=== PATIENT | female | born 1985 | race Caucasian/White ===

== ENCOUNTER → 2020-06-03 18:20 | Observation (INO) | END | disposition home or self-care (01) | LOC: 1NENULAB | PROVIDERS: ADMIT Student in an Organized Health Care Education/Training Program; ATTEND Student in an Organized Health Care Education/Training Program ==

== ENCOUNTER 2020-07-07 07:27 | Inpatient (IN) ==
[~2020-07-07 07:27] MED LIST: *HR* Nalbuphine 10 MG/ML AMPUL IV PRN; Azithromycin 500 MG in 0.9 % Sodium Chloride 250 ML IVPB ONE; Famotidine 20 MG/2 ML VIAL IVP PRN; Lidocaine 1% 20 ML MDV INFILT PRN; Metoclopramide 10 MG/2 ML VIAL IVP PRN; Naloxone 0.4 MG/ML INJ IVP PRN; Ondansetron 4 MG/2 ML VIAL IVP PRN; Ringers Solution, Lactated 1,000 ML IVC SCH; Ringers Solution, Lactated 1,000 ML ONE
[2020-07-07 07:45] LABS: Basophils % 0.2 %; Eosinophils # 0.1 K/mcL (0.0-0.6); Eosinophils % 0.3 %; Hematocrit 41.2 % (35.3-44.9); Immature Granulocytes % 0.9 % (0-4); Lymphocytes # 1.1 K/mcL (0.6-4.6); Mean Corpuscular Hemoglobin 30.4 pg (28.0-33.3); Mean Corpuscular Volume 89.4 fL (83.0-100.0); Mean Platelet Volume 11.2 fL (9.4-12.4); Monocytes # 1.2 K/mcL (0.0-1.3); Monocytes % 5.5 %; Platelet Count 236 K/mcL (140-400); Red Blood Count 4.61 M/mcL (3.82-4.97); Red Cell Distribution Width 13.8 % (11.5-14.5); Segmented Neutrophils % 88.1 %; White Blood Count 21.6 K/mcL (4.3-11.1)
[2020-07-07] MEDS ORDERED: EPHEDrine 50 MG/ML VIAL IVP PRN (08:06)
[2020-07-07] MEDS ORDERED: Ropivacaine/PF 0.2% 20 ML VIAL EP ONE (08:06)
[2020-07-07] MEDS ORDERED: *HR* FentaNYL (PF) 100 MCG/2 ML VIAL EP ONE (08:06)
[2020-07-07] MEDS ORDERED: Epidural Premix (fent/bupiv) 110 ML EP ONE (08:08)
[2020-07-07] MEDS ORDERED: Epidural Premix (fent/bupiv) 110 ML EP SCH (08:15)
[2020-07-07 08:22] LABS: Influenza A PCR Negative (Negative); Influenza B PCR Negative (Negative); Resp. Syncytial Virus PCR Negative (Negative); SARS-CoV-2 by PCR (In House) Negative (Negative)
[2020-07-07] MEDS ORDERED: *HR* FentaNYL (PF) 100 MCG/2 ML VIAL ONE ×3 (08:38→10:04)
[2020-07-07] MEDS ORDERED: Ropivacaine/PF 0.2% 20 ML VIAL ONE (08:38)
[2020-07-07] MEDS ORDERED: Penicillin G Potassium 5,000,000 UNIT in 0.9 % Sodium Chloride Mini Bag 100 ML IVPB ONE (10:01)
[2020-07-07 10:19] LABS: Amphetamine Screen,Urine Negative ng/mL (Cutoff=1000); Barbiturate Screen,Urine Negative ng/mL (Cutoff=200); Benzodiazepines Screen,Urine Negative ng/mL (Cutoff=200); Cannabinoid Screen,Urine Negative ng/mL (Cutoff = 50); Cocaine Screen,Urine Negative ng/mL (Cutoff= 300); Opiate Screen,Urine Negative ng/mL (Cutoff=300); Phencyclidine Screen,Urine Negative ng/mL (Cutoff=25)
[2020-07-07] MEDS ORDERED: Oxytocin 20 units/ LR 1000 mL 20 UNIT/1,000 ML BAG IVC ONE (10:41)
[2020-07-07] MEDS ORDERED: *HR* HYDROcodone/Acet 5/325 mg TABLET PO PRN (14:03)
[2020-07-07] MEDS ORDERED: Lanolin 7 G OINT...G. TP PRN (14:03)
[2020-07-07] MEDS ORDERED: Oxytocin 20 units/ LR 1000 mL 20 UNIT/1,000 ML BAG IVC SCH (14:03)
[2020-07-07] MEDS ORDERED: Benzocaine/Menthol 56 GM AEROSOL SPRAY TP PRN (14:03)
[2020-07-07] MEDS: Ibuprofen 600 MG TABLET PO PRN ×2 (14:21→20:18)
[2020-07-07] MEDS: Acetaminophen 325 MG TABLET PO PRN ×2 (14:21→22:37)
[2020-07-07] MEDS: Ampicillin 2 GM in 0.9 % Sodium Chloride Mini Bag 100 ML IVPB SCH ×2 (14:22→20:19)
[2020-07-07] MEDS ORDERED: Gentamicin 90 MG in 0.9 % Sodium Chloride 100 ML IVPB ONE (14:24)
[2020-07-07] MEDS: Clindamycin 900 MG/50 ML 900 MG/50 ML IV.SOLN IVPB SCH (17:29)
[2020-07-07 19:26] LABS: BUN/Creatinine Ratio 15 (6-26); Blood Urea Nitrogen 8 mg/dL (6-20); eGFR For African Americans > 60 (> 60); eGFR For Non-African Americans > 60 (> 60)
[2020-07-07] MEDS: Gentamicin 90 MG in 0.9 % Sodium Chloride 100 ML IVPB SCH (22:32)
[2020-07-08] MEDS: Clindamycin 900 MG/50 ML 900 MG/50 ML IV.SOLN IVPB SCH ×3 (00:21→17:53)
[2020-07-08] MEDS: Ampicillin 2 GM in 0.9 % Sodium Chloride Mini Bag 100 ML IVPB SCH ×4 (02:01→20:31)
[2020-07-08 03:40] LABS: Basophils # 0.1 K/mcL (0.0-0.2); Basophils % 0.3 %; Eosinophils # 0.1 K/mcL (0.0-0.6); Eosinophils % 0.6 %; Hematocrit 33.4 % (35.3-44.9); Immature Granulocytes % 1.6 % (0-4); Lymphocytes # 1.5 K/mcL (0.6-4.6); Lymphocytes % 8.6 %; Mean Corpuscular HGB Conc 33.2 g/dL (31.6-35.5); Mean Corpuscular Hemoglobin 29.6 pg (28.0-33.3); Mean Corpuscular Volume 89.1 fL (83.0-100.0); Monocytes # 1.2 K/mcL (0.0-1.3); Monocytes % 6.7 %; Neutrophils # 14.8 K/mcL (1.6-8.9); Platelet Count 194 K/mcL (140-400); Red Blood Count 3.75 M/mcL (3.82-4.97); Red Cell Distribution Width 14.1 % (11.5-14.5); Segmented Neutrophils % 82.2 %
[2020-07-08 04:05] LABS: Hemoglobin 11.1 g/dL (11.5-15.4)
[2020-07-08] MEDS: Ibuprofen 600 MG TABLET PO PRN ×3 (06:50→20:31)
[2020-07-08] MEDS: Gentamicin 90 MG in 0.9 % Sodium Chloride 100 ML IVPB SCH ×2 (06:51→16:45)
[2020-07-08] MEDS: Acetaminophen 325 MG TABLET PO PRN (08:42)
[2020-07-08] MEDS: Prenatal Vit/FA 1 EACH TABLET PO SCH (08:42)
[2020-07-09] MEDS: Clindamycin 900 MG/50 ML 900 MG/50 ML IV.SOLN IVPB SCH (00:39)
[2020-07-09] MEDS: Acetaminophen 325 MG TABLET PO PRN (00:43)
[2020-07-09] MEDS: Gentamicin 90 MG in 0.9 % Sodium Chloride 100 ML IVPB SCH (01:59)
[2020-07-09] MEDS: Ampicillin 2 GM in 0.9 % Sodium Chloride Mini Bag 100 ML IVPB SCH (03:02)
[2020-07-09] MEDS: Ibuprofen 600 MG TABLET PO PRN (06:57)
[2020-07-09] MEDS ORDERED: Ringers Solution, Lactated 500 ML ONE (07:50)
[2020-07-09] MEDS: Prenatal Vit/FA 1 EACH TABLET PO SCH (07:55)
[2020-07-09 08:00] VITALS: BP 100/67
== END 2020-07-09 12:23 | disposition home or self-care (01) | DRG 807 ==
LOC: 1NENULAB → 1NENUOBS 13:29
PROVIDERS: ADMIT Advanced Practice Midwife; ATTEND Advanced Practice Midwife